=== PATIENT | male | born 1945 | race Caucasian/White ===

== ENCOUNTER 2018-08-30 11:03 | Emergency (ER) | payer OTHER, BC ==
--- NOTE | 2018-08-30 11:49 | EDPHY ---
H & P Time Seen by Provider: 08/30/18 11:34 HPI/ROS: CHIEF COMPLAINT: Numbness and tingling on the right side of the face and body HISTORY OF PRESENT ILLNESS: Patient started having symptoms about a week ago. He 1st felt like he had a hair between his neck and his shirt collar. It has progressed now to his right face is tingling and also his right arm right leg and right groin. He has been normally active and walks his [employer] at 5:00 a.m. And 8:00 a.m. He walked his sons dogs. No headache or double vision. No weakness or numbness in extremities. No recent injury or trauma. Symptoms mild. Not better worse with anything. REVIEW OF SYSTEMS: Eye: no change in vision ENT: no sore throat Cardiac: no chest pain or syncope Pulmonary: no cough or SOB Abdomen: no vomiting, diarrhea, abdominal pain Musculoskeletal: no back pain Skin: no rash Neuro: no headache Constitutional: no fever : no urinary symptoms A comprehensive 10 point review of systems is otherwise negative aside from elements mentioned in the history of present illness. PAST MEDICAL HISTORY: Includes history of hypertension, throat cancer Social history: Nonsmoker General Appearance: Alert and conversant, cooperative. Eyes: No scleral icterus. Pupils equal reactive extraocular motion intact no diplopia or nystagmus. ENT, Mouth: Normal mucous membranes. Respiratory: Normal respiratory effort, breath sounds equal, lungs are clear to auscultation. Cardiovascular: Regular rate and rhythm. Gastrointestinal: Abdomen is soft and non tender. Neurological: Alert, face symmetric, normal motor and sensory in extremities. Ambulatory not ataxic. No pronator drift. Does not have sensory deficit to light touch testing. Speech is fluent Skin: Warm and dry, no rashes. Musculoskeletal: No peripheral edema. Psychiatric: Not agitated. Emergency Department course/MDM: Plan for MRI brain without contrast, differential includes but not limited to ischemic stroke, vascular dissection, intracranial mass or metastasis. Patient's symptoms of numbness and tingling on the right side but neurologic exam does not show clear deficit. 1323: MRI results discussed with the patient, plan for Neurology phone consultation and then disposition. Neurologist recommended discharge with outpatient follow-up. Smoking Status: Never smoked Constitutional: Initial Vital Signs Temperature (C) 36.4 C 08/30/18 11:04 Heart Rate 76 08/30/18 11:04 Respiratory Rate 18 08/30/18 11:04 Blood Pressure 188/80 H 08/30/18 11:04 O2 Sat (%) 96 08/30/18 11:04 O2 Delivery Mode Room Air Allergies/Adverse Reactions: Statins Allergy (Uncoded 08/30/18 11:07) tagaderm Allergy (Uncoded 08/30/18 11:07) Home Medications: Medication Instructions Recorded Aspirin 08/30/18 Fish Oil 1,000 mg Softgel 08/30/18 Levothyroxine 08/30/18 Losartan Potassium 08/30/18 Medical Decision Making - Diagnostics Imaging Results: Imaging Impressions Brain MRI 08/30/18 11:48 Impression: A few small deep hemispheric white matter lesions, which are nonspecific and can be seen with small vessel ischemic disease, gliosis from migraine or trauma, or less likely postinfectious/postinflammatory etiology. No evidence for acute infarct. Results called and discussed with Dr. Leonardo Del Cid on August 30, 2018 at 1302 hours. Imaging: Discussed imaging studies w/ payer specialist Radiologist Consult/Admit Bed Type: [place] [id number]; discharge with followup Departure - Departure Disposition: Home, Routine, Self-Care Clinical Impression: Paresthesia Condition: Good Instructions: Paresthesia (ED) Referrals: Andry Bone DO [Doctor of Osteopathy] - As per Instructions (office followup tomorrow or next week; call for appointment)
[2018-08-30 14:04] VITALS: BP 163/91
== END 2018-08-30 14:04 | disposition home or self-care (01) ==
DX: R20.0 Anesthesia of skin (principal); R20.2 Paresthesia of skin; Z85.819 Personal history of malignant neoplasm of unspecified site of lip, oral cavity, and pharynx

== ENCOUNTER → 2018-09-14 | Outpatient (CLI) | payer OTHER, BC | LOC: BHLMT 09:30 | PROVIDERS: ATTEND Nurse Practitioner Family | DX: I25.10 Atherosclerotic heart disease of native coronary artery without angina pectoris (principal); I10 Essential (primary) hypertension; E78.5 Hyperlipidemia, unspecified | CPT/HCPCS: 93005-PO ==

== ENCOUNTER 2019-03-16 12:52 | Emergency (ER) | payer OTHER, BC | END 2019-03-16 15:41 | disposition home or self-care (01) ==